=== PATIENT | female | born 1970 | race Caucasian/White ===

== ENCOUNTER 2023-10-11 10:57 | Emergency (ER) | payer MEDICAID, OTHER ==
[~2023-10-11] VITALS: Ht 170.2 cm; Wt 90.7 kg
[2023-10-11] MEDS ORDERED: ONDANSETRON HCL/PF 4 MG/2 ML VIAL ONE (12:42)
[2023-10-11] MEDS ORDERED: MECLIZINE HCL 25 MG TABLET ONE (12:42)
[2023-10-11 12:51] LABS: BASOPHILS % (AUTO) 0.8 % (0.0-2.0); EOSINOPHILS % (AUTO) 0.8 % (0.0-6.0); HEMATOCRIT 37 % (33-45); HEMOGLOBIN 11.6 g/dL (11.5-14.8); LYMPHOCYTES # (AUTO) 1.5 K/uL (0.8-4.8); LYMPHOCYTES % (AUTO) 25.9 % (20.0-44.0); MEAN CORPUSCULAR HEMOGLOBIN 18 PG (26.0-33.0); MEAN CORPUSCULAR HGB CONC 32 g/dl (31.0-36.0); MEAN CORPUSCULAR VOLUME 55 fL (82-100); MONOCYTES # (AUTO) 0.3 K/uL (0.1-1.30); MONOCYTES % (AUTO) 4.4 % (2.0-12.0); NEUTROPHILS # (AUTO) 3.8 K/uL (1.8-8.9); NEUTROPHILS % (AUTO) 68.1 % (43.0-81.0); RED BLOOD CELL COUNT(AUTO) 6.62 MIL/uL (4.0-5.2); RED CELL DISTRIBUTION WIDTH 16.9 % (11.5-15.0); WHITE BLOOD COUNT (AUTO) 5.7 K/uL (4.3-11.0)
[2023-10-11] MEDS: MECLIZINE HCL 12.5 MG TABLET PO ONE (12:51)
[2023-10-11] MEDS: ONDANSETRON HCL/PF 4 MG/2 ML VIAL IVP ONE (12:51)
[2023-10-11] MEDS: IV NS 0.9% 1,000 ML BAG IV ONE (12:51)
[2023-10-11 12:55] LABS: CALCIUM, SERUM 8.8 mg/dL (8.5-10.1); CARBON DIOXIDE 29 mmol/L (21-32); CHLORIDE 105 mmol/L (98-107); CREATININE 0.6 mg/dL (0.6-1.3); GLUCOSE 138 mg/dL (74-106); POTASSIUM 4.4 mmol/L (3.5-5.1); SODIUM SERUM 139 mmol/L (136-145); UREA NITROGEN, BLOOD 8 mg/dL (7-18)
[2023-10-11 13:01] LABS: ALANINE AMINOTRANSFERASE 35 U/L (12-78); ALBUMIN 3.8 g/dL (3.4-5.0); ALKALINE PHOSPHATASE 59 U/L (46-116); ASPARTATE AMINOTRANSFERASE 18 U/L (15-37); BILIRUBIN,DIRECT 0.1 mg/dL (0.0-0.2); BILIRUBIN,TOTAL 0.7 mg/dL (0.2-1.0); TOTAL PROTEIN, SERUM 7.6 g/dL (6.4-8.2)
[2023-10-11 13:41] LABS: PLATELET COUNT (AUTO) 297 K/uL (150-450)
[2023-10-11 14:03] LABS: ANISOCYTOSIS 1+; EOSINOPHILS % (MANUAL) 1 % (0-4); LYMPHOCYTES % (MANUAL) 35 % (16-48); MONOCYTES % (MANUAL) 5 % (0-11.0); NEUTROPHILS % (MANUAL) 59 (42-76); OVALOCYTES 1+; PLATELET ESTIMATE ADEQUATE
[2023-10-11] MEDS ORDERED: MECL-159 PO (14:19)
[2023-10-11] MEDS ORDERED: ONDA4TAB5 PO (14:19)
[2023-10-11 16:51] VITALS: BP 132/80; TEMP 98.7; O2SAT 99
== END 2023-10-11 16:52 | disposition home or self-care (01) ==
LOC: ER 11:08
DX: R00.2 Palpitations (principal); R42 Dizziness and giddiness
CPT/HCPCS: 99285; 96374; 70450; 71045; 96361; 93005 ×3; 85025; 80048; 80076; 36415; 84484; 85007; J8597; J2405; J7030